=== PATIENT | female | born 1945 | race Caucasian/White ===

== ENCOUNTER 2018-03-18 08:26 | Day surgery (SDC) | payer MEDICARE, BC ==
[2018-03-18] MEDS ORDERED: PROPOFOL 500 MG/50 ML EMU IV ONE (09:48)
[2018-03-18 10:27] VITALS: TEMP 97.9
[2018-03-18 10:36] VITALS: BP 142/85; PULSE 67; RESP 14; O2SAT 98
== END 2018-03-18 11:02 | disposition home or self-care (01) | DRG 951 ==
LOC: SURG 08:26
PROVIDERS: ATTEND Surgery
DX: Z12.11 Encounter for screening for malignant neoplasm of colon (principal); K57.32 Diverticulitis of large intestine without perforation or abscess without bleeding; E11.9 Type 2 diabetes mellitus without complications
CPT/HCPCS: J2704